=== PATIENT | male | born 2000 | race Caucasian/White ===

== ENCOUNTER 2021-10-30 16:17 | Emergency (ER) | payer OTHER ==
[~2021-10-30 16:17] MED LIST: Iopamidol-370 76% 500 ML 1 ML ONE
[2021-10-30 16:42] LABS: #Basophils 0.1 thou/uL (0.0-0.2); #Eosinphils 0.1 thou/uL (0.0-0.7); #Neutrophils 7.6 thou/uL (1.40-6.50); %Basophils 0.7 % (0.0-1.0); %Eosinophils 0.7 % (0.0-10.0); %Lymphocytes 25.4 % (21.0-51.0); %Monocytes 8.5 % (0.0-10.0); %Neutrophils 64.7 % (42.0-75.0); Hemoglobin 13.9 g/dL (14.0-18.0); Mean Corpuscular HGB CONC 32.9 g/dL (32.0-36.0); Mean Corpuscular Hemoglobin 29.6 pg (27.0-31.0); Mean Platelet Volume 7.3 fL (7.4-10.4); Platelet Count 257 thou/uL (130-400); RBC Distribution Width 11.4 % (11.5-14.5); White Blood Cell (WBC) Count 11.8 thou/uL (4.8-10.8)
[2021-10-30] MEDS ORDERED: Fentanyl 100 MCG/2 ML VIAL ONE ×2 (16:52→18:17)
[2021-10-30] MEDS ORDERED: Boostrix 0.5 ML (Tdap) VIAL ONE (16:52)
[2021-10-30 17:02] LABS: Troponin I Less than 0.010 ng/mL (< 0.028)
[2021-10-30 17:02] LABS: ALT (SGPT) 68 U/L (8-55); AST (SGOT) 65 U/L (5-34); Albumin 4.9 g/dL (3.5-5.0); Alcohol Less than 10 mg/dL (Less than 10); Alkaline Phosphatase 39 U/L (40-110); Anion Gap 19 mmol/L (10-20); BUN (Urea Nitrogen) 17 mg/dL (8.9-20.6); Bilirubin, Total 0.8 mg/dL (0.2-1.2); Calc. Creatinine Clearance 0 mL/min (70-130); Calcium 9.9 mg/dL (7.8-10.44); Carbon Dioxide 19 mmol/L (22-29); Chloride 106 mmol/L (98-107); Globulin 3.1 g/dL (2.4-3.5); Glucose 118 mg/dL (70-105); Potassium 3.4 mmol/L (3.5-5.1); Sodium 141 mmol/L (136-145)
[2021-10-30] MEDS ORDERED: Ondansetron PF 4 MG/2 ML Vial ONE (17:26)
[2021-10-30] MEDS ORDERED: Xylocaine 1% w/ Epi 1:100K 10 ML VIAL ONE (17:28)
[2021-10-30] MEDS ORDERED: Promethazine HCl 25 MG/ML VIAL ONE (18:33)
[2021-10-30] MEDS ORDERED: Bacitracin 1 PK ONE (20:07)
== END 2021-10-30 20:03 | disposition home or self-care (01) ==
LOC: ERS 16:17
DX: S01.81XA Laceration without foreign body of other part of head, initial encounter (principal); S82.51XA Displaced fracture of medial malleolus of right tibia, initial encounter for closed fracture; S31.114A Laceration without foreign body of abdominal wall, left lower quadrant without penetration into peritoneal cavity, initial encounter; V89.2XXA Person injured in unspecified motor-vehicle accident, traffic, initial encounter
CPT/HCPCS: 12011; 12031; 29515; 36415; 70450; 70486; 71260; 72125; 74177; 80053; 80307; 84484; 85025; 86850; 86900; 86901; 90471; 90715; 96374; 96375; 96376; G0390; J2405; J2550; J3010; Q9967

== ENCOUNTER 2021-11-02 12:17 | Outpatient (CLI) | payer SELFPAY ==
[2021-11-03 09:06] LABS: SARS-CoV-2 PCR by NAA Not Detected (NotDetected)
== END 2021-11-02 12:18 | disposition home or self-care (01) ==
LOC: LABBT 12:17
PROVIDERS: ATTEND Orthopaedic Surgery
DX: Z01.812 Encounter for preprocedural laboratory examination (principal); Z20.822 Contact with and (suspected) exposure to COVID-19
CPT/HCPCS: U0003; U0005

== ENCOUNTER 2021-11-05 11:13 | Day surgery (SDC) | payer OTHER ==
[2021-11-03 08:56] VITALS: BMI 17.1
[2021-11-05] MEDS ORDERED: Fentanyl 100 MCG/2 ML VIAL ONE ×4 (12:34→15:53)
[2021-11-05] MEDS ORDERED: ceFAZolin 2 GM/Dextrose 50 ML IVPB ONE (12:41)
[2021-11-05] MEDS ORDERED: Ropivacaine 0.5% HCl/PF (150 MG/30 ML VIAL) ONE (12:55)
[2021-11-05] MEDS ORDERED: Bupivacaine PF 0.5% 30 ML VIAL ONE (12:55)
[2021-11-05] MEDS ORDERED: Midazolam HCl 2 mg/2 ml Vial ONE (12:55)
[2021-11-05] MEDS ORDERED: Ondansetron PF 4 MG/2 ML Vial ONE ×2 (13:11→13:30)
[2021-11-05] MEDS ORDERED: Scopolamine 1.5 mg/72 hour Patch ONE (13:11)
[2021-11-05] MEDS ORDERED: PROPOFOL 200 MG/20 ML VIAL ONE (13:30)
[2021-11-05] MEDS ORDERED: Dexamethasone 20 MG/5 ML VIAL ONE (13:30)
[2021-11-05] MEDS ORDERED: Zolpidem Tartrate 5 MG TAB PO PRN (14:15)
[2021-11-05] MEDS ORDERED: Ketorolac Tromethamine 30 MG/ML VIAL IVP PRN (14:15)
[2021-11-05] MEDS ORDERED: Ondansetron PF 4 MG/2 ML Vial IVP PRN (14:15)
[2021-11-05] MEDS ORDERED: traMADol HCl 50 MG TAB PO PRN ×2 (14:15)
[2021-11-05] MEDS ORDERED: Ropivacaine 0.2% 550 ML 550 ML NERVE BLCK SCH (14:15)
[2021-11-05] MEDS ORDERED: Promethazine HCl 25 MG/ML VIAL IM PRN (14:15)
[2021-11-05] MEDS ORDERED: HYDROcodone/Acetaminophen 5/325 mg Tablet PO PRN ×2 (14:15)
[2021-11-05] MEDS ORDERED: Meperidine HCl/PF 25 MG/ML VIAL ONE (14:42)
[2021-11-05] MEDS ORDERED: Ropivacaine 0.2% HCl/PF 20 ML ONE (14:50)
[2021-11-05] MEDS ORDERED: Promethazine HCl 25 MG/ML VIAL ONE (15:06)
[2021-11-05] MEDS ORDERED: Ketorolac Tromethamine 30 MG/ML VIAL ONE (16:57)
== END 2021-11-05 18:15 | disposition home or self-care (01) ==
LOC: SDC 11:13
PROVIDERS: ATTEND Orthopaedic Surgery
PROC: 3E0T3BZ Introduction of Anesthetic Agent into Peripheral Nerves and Plexi, Percutaneous Approach (ICD-10-PCS; principal; 2021-11-05)
PROC: 0QSG04Z Reposition Right Tibia with Internal Fixation Device, Open Approach (ICD-10-PCS; principal; 2021-11-05)
DX: S82.51XA Displaced fracture of medial malleolus of right tibia, initial encounter for closed fracture (principal); V29.9XXA Motorcycle rider (driver) (passenger) injured in unspecified traffic accident, initial encounter
CPT/HCPCS: 76000; A4306; C1713; C1769; J0690; J1100; J1885; J2175; J2250; J2405; J2550; J2704; J2795; J3010; S0020

== ENCOUNTER 2021-11-09 11:09 | Emergency (ER) | payer SELFPAY ==
[2021-11-09] MEDS ORDERED: Bacitracin 1 PK ONE ×2 (11:45→11:49)
== END 2021-11-09 12:13 | disposition home or self-care (01) ==
LOC: ERS 11:09
DX: S01.81XD Laceration without foreign body of other part of head, subsequent encounter (principal); S31.114D Laceration without foreign body of abdominal wall, left lower quadrant without penetration into peritoneal cavity, subsequent encounter; Z79.899 Other long term (current) drug therapy
CPT/HCPCS: 99281